=== PATIENT | female | born 1955 | race Caucasian/White ===

== ENCOUNTER 2019-04-28 02:01 | Emergency (ER) | payer OTHER ==
[~2019-04-28] VITALS: Ht 170.2 cm; Wt 76.7 kg
[2019-04-28] MEDS ORDERED: TDAP [DIPH/PERTUSSIS/TET] 0.5 ML VIAL IM ONE ×2 (02:30→02:33)
[2019-04-28] MEDS ORDERED: ACETAMINOPHEN ES 500 MG TABLET PO ONE (02:30)
[2019-04-28] MEDS ORDERED: ACETAMINOPHEN ES 500 MG TABLET ONE (02:32)
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
--- NOTE | 2019-04-28 03:00 | NUR ---
XRAY AT BEDSIDE
--- NOTE | 2019-04-28 03:07 | NUR ---
SENT TO CT.
--- NOTE | 2019-04-28 04:03 | NUR ---
Patient discharged to home in stable condition. Written and verbal after care instructions given. Patient verbalizes understanding of instruction.
[2019-04-28 04:04] VITALS: BP 133/78
== END 2019-04-28 04:05 | disposition home or self-care (01) ==
LOC: ER 02:07
DX: S00.81XA Abrasion of other part of head, initial encounter (principal); M25.512 Pain in left shoulder; F17.200 Nicotine dependence, unspecified, uncomplicated; Z98.890 Other specified postprocedural states; Z91.048 Other nonmedicinal substance allergy status; Z60.2 Problems related to living alone; V49.49XA Driver injured in collision with other motor vehicles in traffic accident, initial encounter; Y93.89 Activity, other specified; Y92.413 State road as the place of occurrence of the external cause; Y99.8 Other external cause status
CPT/HCPCS: 70450-TC; 70486-TC; 71045-TC; 72125-TC; 73030-TC; 90715